=== PATIENT | female | born 1990 | race Caucasian/White ===

== ENCOUNTER 2016-12-26 16:37 | Emergency (ER) | payer MEDICAID ==
[~2016-12-26] VITALS: Ht 157.5 cm; Wt 140.0 kg
[~2016-12-26 16:37] MED LIST: AMOXICILLIN 50500 MG PO; AMOXICILLIN 8751 TAB PO; ANTIVERT 25MG25 MG PO; BACTRIM DS 8001 TAB PO; BCP TD; CENTRUM1 TAB PO; CIPRODEX OT; CLEOCIN HCL300 MG PO; DEPO MEDROL40 MG/ML IJ; DIFLUCAN150 MG PO; DOXYCYCLINE 10100 MG PO; ESCITALOPRAM PO; FIORICET 325 MG1 TA1 PO; GENTAMICIN EYE D5 ML OU; IMPLANON68 MG ID; LORTAB 5/500 501 TAB PO; LORTAB ELIX0.5 MG/ML PO; MACROBID 1100 MG/CAP PO; MAKENA250 MG/ML IM; MOTRIN 600600 MG/TAB PO; NO HOME MEDICATIONS; NORCO 325 MG-51 TAB PO; PERCOCET 325 MG1 TA2 PO; PHENERGAN 25 TA25 MG PO; PHENERGAN W/CO120 M1 PO; PHENERGAN W/CO120 ML PO; PRENATAL1 TA1 PO; PRENATAL1 TA7 PO; TOPAMAX 25MG25 M1 PO; TUSS PO; TYLENOL 325MG325 MG PO; TYLENOL 500MG500 MG PO; TYLENOL325 MG PO; ZITHROMAX 250M250 MG PO
[2016-12-26 16:39] VITALS: TEMP 97.8
[2016-12-26] MEDS ORDERED: DIFLUCAN150 MG PO (17:32)
[2016-12-26] MEDS ORDERED: NYSTATIN CREAM15 GM TP (17:43)
[2016-12-26 18:30] VITALS: BP 118/79; PULSE 67
== END 2016-12-26 18:34 | disposition home or self-care (01) ==
LOC: COL.ER 16:37
DX: G43.909 Migraine, unspecified, not intractable, without status migrainosus (principal); B37.2 Candidiasis of skin and nail
CPT/HCPCS: J1200; J1885; J2550; J7030

== ENCOUNTER 2018-11-07 19:28 | Emergency (ER) | payer MEDICAID ==
[~2018-11-07] VITALS: Ht 157.5 cm; Wt 157.3 kg
[~2018-11-07 19:28] MED LIST changes: +NYSTATIN CREAM15 GM TP
[2018-11-07 19:38] VITALS: BP 139/97; TEMP 100
[2018-11-07] MEDS ORDERED: AMOXICILLIN 50500 MG PO (20:00)
[2018-11-07 20:19] VITALS: PULSE 105
== END 2018-11-07 20:19 | disposition home or self-care (01) ==
LOC: COL.ER 19:28
DX: J03.90 Acute tonsillitis, unspecified (principal)

== ENCOUNTER → 2019-02-16 | Outpatient (CLI) | payer MEDICAID | LOC: MC.RAD 12:18 | DX: N63.14 Unspecified lump in the right breast, lower inner quadrant (principal) ==

== ENCOUNTER 2019-04-01 05:36 | Emergency (ER) | payer MEDICAID ==
[~2019-04-01] VITALS: Ht 157.5 cm; Wt 159.1 kg
[2019-04-01 05:40] VITALS: BP 132/87; TEMP 97.2
[2019-04-01] MEDS ORDERED: SUDAFED30 MG PO (06:03)
[2019-04-01] MEDS ORDERED: AMOXICILLIN 50500 MG PO (06:03)
[2019-04-01] MEDS ORDERED: ANTIVERT 25MG25 MG PO (06:05)
[2019-04-01 06:21] VITALS: PULSE 91
== END 2019-04-01 06:21 | disposition home or self-care (01) ==
LOC: COL.ER 05:36
DX: H66.92 Otitis media, unspecified, left ear (principal); R42 Dizziness and giddiness; F17.210 Nicotine dependence, cigarettes, uncomplicated; G43.909 Migraine, unspecified, not intractable, without status migrainosus

== ENCOUNTER 2019-07-06 16:35 | Emergency (ER) | payer MEDICAID ==
[~2019-07-06] VITALS: Ht 157.5 cm; Wt 165.5 kg
[~2019-07-06 16:35] MED LIST changes: +SUDAFED30 MG PO
[2019-07-06 16:40] VITALS: TEMP 98.3
[2019-07-06] MEDS ORDERED: IMITREX 25MG TA25 MG PO (16:46)
[2019-07-06 17:23] LABS: COLLECTION METHOD CLEAN CATCH
[2019-07-06 17:38] LABS: BASO % 0.2 % (0.0-2.0); EOS # 0.1 (0.0-0.7); EOS % 1.2 % (0-4.0); GRAN # 7.4 (1.4-6.5); GRAN % 72.7 % (42.2-75.2); HEMATOCRIT 38.7 % (37.0-47.0); HEMOGLOBIN 12.5 g/dl (12.5-16.0); LYMPH # 2.1 (1.2-3.4); LYMPH % 20.8 % (20.0-51.0); MEAN CELL VOLUME 92 fl (80.0-100.0); MEAN CORPUSCULAR HEMOGLOBIN 30 pg (27.0-31.0); MEAN CORPUSCULAR HGB CONC 32 g/dl (33.0-37.0); MEAN PLATELET VOLUME 11.7 fl (7.4-10.4); MONO # 0.5 (0.1-0.6); MONO % 4.7 % (1.7-9.3); PLATELET COUNT 190 K/mm3 (130-400); RED BLOOD COUNT 4.21 M/mm3 (4.10-5.30); REDCELL DISTRIBUTION WIDTH-CV 13.2 % (11.5-14.5)
[2019-07-06 17:40] LABS: MUCOUS Present /lpf; PH 5 (5-8); URINE APPEARANCE Cloudy; URINE BACTERIA Rare /hpf; URINE BILIRUBIN Negative (NEGATIVE); URINE BLOOD 1+ (NEGATIVE); URINE COLOR Yellow; URINE GLUCOSE Negative (NEGATIVE); URINE KETONE 1+ (NEGATIVE); URINE LEUKOCYTE ESTERASE 3+ (NEGATIVE); URINE NITRATE Negative (NEGATIVE); URINE PROTEIN(semi-quant) Negative (NEGATIVE); URINE UROBILINOGEN Negative (NEGATIVE)
[2019-07-06 17:53] LABS: ALBUMIN 4.2 gm/dL (3.5-5.0); BILIRUBIN,TOTAL 0.4 mg/dL (0.0-1.0); CALCIUM 9.5 mg/dL (8.4-10.2); CREATININE, serum 0.62 (0.52-1.25); POTASSIUM 3.9 mmol/L (3.4-5.0); TOTAL PROTEIN 7.8 gm/dL (6.4-8.2)
[2019-07-06] MEDS ORDERED: ZOFRAN ODT4 MG PO (20:05)
[2019-07-06 20:21] VITALS: BP 141/81; PULSE 85
== END 2019-07-06 20:20 | disposition home or self-care (01) ==
LOC: COL.ER 16:35
PROVIDERS: Emergency Medicine
DX: O21.1 Hyperemesis gravidarum with metabolic disturbance (principal); O99.351 Diseases of the nervous system complicating pregnancy, first trimester; Z3A.12 12 weeks gestation of pregnancy; G43.909 Migraine, unspecified, not intractable, without status migrainosus; Z87.891 Personal history of nicotine dependence
CPT/HCPCS: J2765; J7030

== ENCOUNTER 2019-12-09 12:59 | Outpatient (CLI) | payer MEDICAID ==
[~2019-12-09] VITALS: Ht 162.6 cm; Wt 178.2 kg
[~2019-12-09 12:59] MED LIST changes: +IMITREX 25MG TA25 MG PO; +ZOFRAN ODT4 MG PO
--- NOTE | 2019-12-09 13:05 | NUR ---
pt here for decreased movement. 34 weeks gestation, G3L2. Pt denies any contractions, leaking of fluid or bleeding. This nurse attempted to find FHR with EFM, unsuccessful. While trying to find FHR mother states baby starting kicking several times and she could feel it. This nurse at bedside could hear it on the US. 1320:Marta RN at bedside attempting to find FHR. Doppler used and 156bpm noted but unable to find with EFM. Dr Bright called, see physician notification. Assessment complete. complicated with obesity and fetus having trisomy 13. Plan of care to get bedside US for BPP. Will notify Dr Bright with results.
[2019-12-09 13:50] VITALS: BP 132/83; PULSE 117; TEMP 98.4
--- NOTE | 2019-12-09 13:52 | NUR ---
1330 UNABLE TO FIND FHT WITH EFM DUE TO PATIENTS SIZE. MOVEMENT AUDIBLE. DOPPLER FHT 156. BABY ACTIVE. DR LARSEN CALLED AND UPDATED. ORDERS TO CALL US FOR A BPP. NO MONITOR STRIP NEEDED WILL DO COMPLETE BPP PER DR LARSEN.
--- NOTE | 2019-12-09 15:56 | NUR ---
1430 AONO TECH AT BEDSIDE FOR ULTRSOUND/BPP. WILL CALL DOCTOR WITH RESULTS
[2019-12-09 16:02] VITALS: BP 143/82; PULSE 91
--- NOTE | 2019-12-09 16:05 | NUR ---
DOPPLER 144. PATIENT STATES SHE FEELS BABY MOVE NOW. WAITING FOR RESULTS OF BPP
--- NOTE | 2019-12-09 16:48 | NUR ---
6397 PATIENT STATES IS FEELING BABY MOVE ALOT SINCE BEEN HERE. DR LARSEN CALLED AND UPDATED, DR CANAS TO GET BPP REPORT.
--- NOTE | 2019-12-09 17:05 | NUR ---
Dr Bright called and spoke to Marta RODRIGUEZ and BPP results from Dr Archer given to Dr Bright. Ok to send home at this time, unable to get a BPP result d/t pt's size but report was showing a good FHR, adequate movement and ADRI. Discharge instructions given to pt and . Pt aware of kick counts and verbalizes understanding. No further questions.
== END 2019-12-09 17:05 | disposition home or self-care (01) ==
LOC: LDRO 12:59
DX: O36.8130 Decreased fetal movements, third trimester, not applicable or unspecified (principal); Z3A.34 34 weeks gestation of pregnancy

== ENCOUNTER 2019-12-20 12:07 | Outpatient (CLI) | payer MEDICAID ==
[~2019-12-20] VITALS: Ht 157.5 cm; Wt 178.2 kg
[2019-12-20 12:30] VITALS: BP 128/63; PULSE 89; TEMP 97.2
[2019-12-20 12:38] VITALS: BP 128/63; PULSE 89; TEMP 97.2
[2019-12-20 13:00] VITALS: BP 118/55; PULSE 86
--- NOTE | 2019-12-20 13:11 | NUR ---
1230 PATIENT HERE FOR COMPLAINTS OF NOT FEELING BABY MOVE AND SEVERE HEADACHE THAT WONT GO AWAY. ASSESSMENT COMPLETED. NO CONTRACTIONS FELT BY PATIENT. EFM ON UNABLE TO FIND FHT DUE TO PATIENT SIZES. DOPPLER FHT 148 IN RIGHT UPPER QUAD. EFM US PLACED IN THIS SPOT AND FHT 130'S BABY ACTIVE. US CALLED FOR BPP ALSO
--- NOTE | 2019-12-20 13:16 | NUR ---
1300 COMPLAINS OF HEADACHE GETTING WORSE. DR LARSEN CALLED AND UPDATED. ORDERS GIVEN FOR IVF AT THIS TIME.
[2019-12-20 14:11] VITALS: BP 127/61; PULSE 77; TEMP 98.3
--- NOTE | 2019-12-20 14:13 | NUR ---
1400 US DONE. UNABLE TO FIND FHT WITH EFM US DUE TO PATIENT SIZE. DOPPLER FOR FHT 138. IVF LR 1000 BOLUS AND ZOFRAN 8 MG IV PER .
[2019-12-20 15:00] VITALS: BP 120/71; PULSE 81
--- NOTE | 2019-12-20 15:14 | NUR ---
1500 EFM ON FHT 120 BABY VERY ACTIVE AT THIS TIME. IVF DONE, TYLENOL 100 MG PO GIVEN FOR SEVERE HEADACHE. NO NAUSEA NOTED AT THIS TIME. HEADACHE A LITTLE BETTER. DR LARSEN CALLED AND UPDATED. ORDERS TO DISMISS TO HOME TO FOLLOW UP WITH DR JENNINGS NEXT WEEK AT REGULAR APPOINTMENT. PATIENT DENIES NEEDS AT THIS TIME. IV DC'D AT THIS TIME. ALL DISCHARGE INSTRUCTIONS GIVEN TO PATIENT WITH VERBAL UNDERSTANDING NOTED.
[2019-12-30] MEDS ORDERED: PEPCID AC 10MG10 MG PO (19:59)
[2019-12-30] MEDS ORDERED: PRENATAL MVI (19:59)
[2019-12-30] MEDS ORDERED: ANTIVERT 12.512.5 MG PO (19:59)
== END 2019-12-20 15:10 | disposition home or self-care (01) ==
LOC: LDRO 12:07 → COL.ER 12:07 → EDSTATUS 12:18 → LDRO 15:10
DX: O36.8130 Decreased fetal movements, third trimester, not applicable or unspecified (principal); P01.3 Newborn affected by polyhydramnios; Z3A.35 35 weeks gestation of pregnancy
CPT/HCPCS: J2405; J7120

== ENCOUNTER 2020-03-12 23:13 | Observation (INO) | payer MEDICAID ==
[~2020-03-12] VITALS: Ht 157.5 cm; Wt 180.4 kg
[~2020-03-12 23:13] MED LIST changes: +ANTIVERT 12.512.5 MG PO; +IBU600 MG PO; +PEPCID AC 10MG10 MG PO; +PRENATAL MVI
[2020-03-13 00:26] LABS: COLLECTION METHOD CLEAN CATCH
[2020-03-13 00:29] LABS: BASO % 0.2 % (0.0-2.0); EOS # 0.1 (0.0-0.7); EOS % 1.2 % (0-4.0); GRAN # 9.1 (1.4-6.5); GRAN % 74.3 % (42.2-75.2); HEMOGLOBIN 10.9 g/dl (12.5-16.0); LYMPH # 2.2 (1.2-3.4); LYMPH % 18.1 % (20.0-51.0); MEAN CELL VOLUME 87 fl (80.0-100.0); MEAN CORPUSCULAR HEMOGLOBIN 27 pg (27.0-31.0); MEAN CORPUSCULAR HGB CONC 32 g/dl (33.0-37.0); MEAN PLATELET VOLUME 11.4 fl (7.4-10.4); MONO # 0.7 (0.1-0.6); MONO % 5.9 % (1.7-9.3); PLATELET COUNT 225 K/mm3 (130-400); REDCELL DISTRIBUTION WIDTH-CV 14.4 % (11.5-14.5)
[2020-03-13 00:34] LABS: HEMATOCRIT 34.6 % (37.0-47.0)
[2020-03-13 00:36] LABS: MUCOUS Present /lpf; PH 5 (5-8); URINE APPEARANCE Cloudy; URINE BACTERIA Rare /hpf; URINE BILIRUBIN Negative (NEGATIVE); URINE BLOOD 1+ (NEGATIVE); URINE COLOR Yellow; URINE GLUCOSE Negative (NEGATIVE); URINE KETONE Negative (NEGATIVE); URINE LEUKOCYTE ESTERASE 1+ (NEGATIVE); URINE NITRATE Negative (NEGATIVE); URINE PROTEIN(semi-quant) Negative (NEGATIVE); URINE UROBILINOGEN Negative (NEGATIVE)
[2020-03-13 00:48] LABS: BILIRUBIN,TOTAL 0.4 mg/dL (0.0-1.0); C-REACTIVE PROTEIN 2.4 mg/dL (0.0-0.9); CALCIUM 9.5 mg/dL (8.4-10.2); CREATININE, serum 0.76 (0.52-1.25); TOTAL PROTEIN 7.6 gm/dL (6.4-8.2)
--- NOTE | 2020-03-13 09:00 | NUR ---
Dr Keys here to see patient.
--- NOTE | 2020-03-13 10:43 | NUR ---
Patient alert and oriented, answers questions appropriately. See assessment. Abdomen soft, obese. Bowel sounds hyperactive x4 quads. +Flatus. No pain with palpation. Requests to increase diet. No other c/o at this time.
--- NOTE | 2020-03-13 11:33 | NUR ---
ELIZABETH met with the patient to discuss discharge plan. The patient lives in [place] with her fiance, Anoop Bhandari (ph#[phone]), and her three children. She reports independence with ADLs and does not have any DME. The patient's PCP is Dr. Akhil Webb and she receives her medications at [facility]. She reports no difficulties obtaining his meds. The patient does not have advanced directives, but she was interested in obtaining a form for DPOA-HC. ELIZABETH provided. The patient plans to return home with her family upon discharge. No additional needs at this time.
[2020-03-13 12:25] VITALS: BP 95/51; PULSE 80; TEMP 97.9
--- NOTE | 2020-03-13 12:29 | NUR ---
First visit from the ornamental rail installer. No needs right now.
[2020-03-13 12:43] VITALS: BP 102/64
[2020-03-13 17:00] VITALS: BP 110/59; PULSE 78; TEMP 97.7
--- NOTE | 2020-03-13 17:01 | NUR ---
Dr Keys here to see patient.
--- NOTE | 2020-03-13 19:40 | NUR ---
Patient taken by wheel chair to ER doors. Discharge paperwork discussed no questions at this time. Patient escorted down by this nurse, left by private vehicle.
== END 2020-03-13 19:40 | disposition home or self-care (01) ==
LOC: COL.ER 23:13 → SURG 03-13 03:24
PROVIDERS: Emergency Medicine; ADMIT Surgery
DX: K35.80 Unspecified acute appendicitis (principal); Z87.891 Personal history of nicotine dependence
CPT/HCPCS: G0378; J0696; J1885; J2270; J2405; J7030

== ENCOUNTER 2020-11-03 00:30 | Outpatient (CLI) | payer MEDICAID ==
[~2020-11-03] VITALS: Ht 157.5 cm; Wt 194.1 kg
--- NOTE | 2020-11-03 00:30 | NUR ---
To unit for labor assessment, accompanied by significant other. Oriented to room, monitor, plan of care. Questions invited and answred. Pt reports "I have a back ache. I may have done too much yesterday" ADAIR as noted. Working on obtaining FHT's.
== END 2020-11-03 01:55 | disposition home or self-care (01) ==
LOC: LDRO 00:30 → LDR 01:26 → LDRO 01:55
DX: O26.893 Other specified pregnancy related conditions, third trimester (principal); M54.9 Dorsalgia, unspecified; Z3A.33 33 weeks gestation of pregnancy
CPT/HCPCS: OP

== ENCOUNTER 2020-11-17 09:17 | Outpatient (CLI) | payer MEDICAID ==
[~2020-11-17] VITALS: Ht 154.9 cm; Wt 196.4 kg
[2020-11-17 09:30] VITALS: BP 136/82; PULSE 114; TEMP 98.1
--- NOTE | 2020-11-17 09:57 | NUR ---
0930 PATIENT HERE FOR COMPLAINTS OF DECREASED MOVEMENT SINCE YESTERDAY. EFM ON FHR 135 BABY VERY ATIVE, AND PATIENT IS FEELING BABY MOVE NOW. NO CONTRACTIONS FELT BY PATIENT OR ON MONITOR. DR MAYER CALLED AND UPDATED AND ODERS TO GET 20 MIN REACTIVE STRIP AND THEN DISMISS TO HOME
[2020-11-17 10:10] VITALS: BP 124/84; PULSE 72
--- NOTE | 2020-11-17 10:16 | NUR ---
1010REACTIVE STRIP NOTED. DR MAYER REVIEWED MONITOR STRIP AND ORDERS TO DISMISS TO HOME. ALL DISCHARGE INSTRUCTIONS GIVEN TO PATIENT AND BOYFRIEND WITH VERBAL UNDERSTANDING NOTED.
== END 2020-11-17 10:10 | disposition home or self-care (01) ==
LOC: LDRO 09:17
DX: O36.8130 Decreased fetal movements, third trimester, not applicable or unspecified (principal); Z3A.35 35 weeks gestation of pregnancy

== ENCOUNTER 2020-11-24 04:09 | Outpatient (CLI) | payer MEDICAID ==
[~2020-11-24] VITALS: Ht 157.5 cm; Wt 196.4 kg
--- NOTE | 2020-11-24 04:20 | NUR ---
G4L3. 36.2. Wheeled to LDR 6. Clean gown on. EFM and TOCO explained and applied. Pt states she was going to the bathroom when she thought her water broke but she is unsure. Pt states she feels like she is leaking but is also unsure if that is the case. Denies contractions or vaginal bleeding. Reports good movement. Plan of care explained. 0435: SVE FT/Thick/High by Tri RODRIGUEZ. Amniotest negative at this times as well. Exam moist. ROM + completed at this time as well by Tri RODRIGUEZ. Plan of care explained to pt and pt verbalizes her understanding. Call light within reach.
[2020-11-24] MEDS ORDERED: NATURAL MAGNES200 MG PO (04:47)
[2020-11-24] MEDS ORDERED: ANTIVERT 12.512.5 MG PO (04:48)
[2020-11-24] MEDS ORDERED: PRENATAL MVI PO (04:48)
[2020-11-24] MEDS ORDERED: CALCIUM CARBON650 M2 PO (04:48)
[2020-11-24 05:00] VITALS: BP 142/82; PULSE 96; TEMP 98
[2020-11-24 05:44] VITALS: BP 148/83; PULSE 100
== END 2020-11-24 05:55 | disposition home or self-care (01) ==
LOC: LDRO 04:09 → LDR 04:43 → LDRO 05:55
DX: O26.893 Other specified pregnancy related conditions, third trimester (principal); Z3A.36 36 weeks gestation of pregnancy
CPT/HCPCS: OP

== ENCOUNTER 2020-11-29 22:10 | Outpatient (CLI) | payer MEDICAID ==
[~2020-11-29] VITALS: Ht 157.5 cm; Wt 196.4 kg
[~2020-11-29 22:10] MED LIST changes: +CALCIUM CARBON650 M2 PO; +NATURAL MAGNES200 MG PO; +PRENATAL MVI PO
--- NOTE | 2020-11-29 22:20 | NUR ---
2220- PT PRESENTS TO LDR COMPLAINING OF CONTRACTIONS. PT WAS SUPPOSED TO COME IN FOR NST EARLIER IN THE DAY BUT FELT HER BABY MOVE AND STAYED HOME INSTEAD. PT STATES SHE HAS SINCE STARTED JEFFY AND HAS COME A LABOR CHECK. SHE DENIES LEAKING FLUID OR VAGINAL BLEEDING. STATES BABY HAS DECREASED MOVEMENT AGAIN THIS EVENING. PLAN FOR LABOR CHECK DISCUSSED AND QUESTIONS ANSWERED. 4- EFM X2 APPLIED. DIFFICULT TO TRACE FHT'S DUE TO MATERNAL BODY HABITUS. 2240- SVE BY THIS NURSE . PLAN OF CARE DISCUSSED WITH PT. MONITORS ADJUSTED. MOVEMENT NOTED. 2250- NURSING ADMISSION HISTORY AND ASSESSMENTS COMPLETE. PT REPORTS THAT SHE HAS HAD A CONTRACTION, BUT MONITOR DID NOT PICK IT UP AND NURSE DID NOT PALPATE ONE WHILE ATTEMPTING TO TRACE FHT'S. ORAL HYDRATION PROVIDED. 2311- PT REPORTS ANOTHER CONTRACTION. NURSE UNABLE TO PALPATE. 2320- PT WISHES TO SIT UP MORE FOR HER COMFORT. NURSE UNABLE TO FIND FHT'S IN THIS POSITION. WILL ADJUST AFTER PT'S SVE. MOVEMENT NOTED. 2340- SVE BY THIS NURSE UNCHANGED. PLAN OF CARE DISCUSSED. NURSE AT BEDSIDE AND HOLDS MONITOR IN PLACE TO OBTAIN CONSISTEN FHT TRACING PRIOR TO DISMISSAL. MOVEMENT NOTED. 0000- PT OFF MONITOR FOR DISMISSAL. 0004- DR JENNINGS CALLED AND UPDATED ON PT HISTORY, COMPLAINT, SVE, STRIP INTERPRETATION, DISCOMFORT, AND MOVEMENT. ORDERS RECEIVED TO DISMISS TO HOME STABLE LABOR CHECK. 0020- DISMISSAL INSTRUCTIONS GIVEN AND PT VERBALIZES UNDERSTANDING. PT DISMISSED TO HOME AMBULATORY ACCOMPANIED BY BOYFRIEND.
[2020-11-29 23:00] VITALS: BP 141/88; PULSE 103; TEMP 98.5
[2020-11-29 23:30] VITALS: BP 138/88; PULSE 106
== END 2020-11-30 00:20 | disposition home or self-care (01) ==
LOC: LDRO 22:10 → LDR 22:52 → LDRO 11-30 00:20
DX: O62.9 Abnormality of forces of labor, unspecified (principal); Z3A.37 37 weeks gestation of pregnancy
CPT/HCPCS: OP

== ENCOUNTER → 2020-12-08 | Outpatient (CLI) | payer MEDICAID ==
[~2020-12-08] VITALS: Ht 157.5 cm; Wt 201.4 kg
[~2020-12-08] MED LIST changes: +FERRO-TIME325 MG PO; +LOVENOX 4040 MG/0.4 SQ
--- NOTE | 2020-12-08 09:58 | NUR ---
PT HERE FOR LABOR CHECK. STARTED HAVING CONTRACTIONS OFF AND ON SINCE 12/06. INCERTAIN HOW OFTEN SHE IS HAVING THE CONTRACTIONS. SVE BY JENN 4/5O/HIGH. ASSESSMENT COMPLETED. FHT'S VERY DIIFICULT TO MONITOR. PT BREATHING THROUGH CONTRACTIONS-NOT PICKING THEM UP VIA TOCO. GAVE PT BUTTON TO PUSH TO INDICATE CONTRACTIONS.
[2020-12-08 10:12] VITALS: BP 108/57; PULSE 105; TEMP 97.8
--- NOTE | 2020-12-08 10:14 | NUR ---
UNABLE TO MONITOR DURATION OF CONTRACTIONS. PT PUSHING BUTTON WHEN SHE HAS THEM TO JENNA ON MONITOR. FHT'S WITH MODERATE VARIABILITY AND ACCELS.
[2020-12-08 11:10] VITALS: BP 112/63; PULSE 106
--- NOTE | 2020-12-08 11:30 | NUR ---
SVE BY Rin GRAHAM RN, WITH NO CERVICAL CHANGE. DISCUSSED EARLY LABOR WITH PT AND SIGNIFICANT OTHER.
== END | disposition still patient (30) ==
LOC: LDRO 11-29 16:17
DX: O62.9 Abnormality of forces of labor, unspecified (principal); Z3A.38 38 weeks gestation of pregnancy

== ENCOUNTER 2020-12-10 06:39 | Inpatient (IN) | payer MEDICAID ==
[2020-12-10] VITALS (26 sets, daily range): BP systolic 115–164; BP diastolic 66–108; PULSE 83–112; TEMP 97.6–98.4
[~2020-12-10] VITALS: Ht 157.6 cm; Wt 202.7 kg
[~2020-12-10 06:39] MED LIST changes: -FERRO-TIME325 MG PO; -LOVENOX 4040 MG/0.4 SQ
--- NOTE | 2020-12-10 07:00 | NUR ---
Patient ambulatory to LR4 with significant other, changes into gown, FHR/TOCO monitors placed and explained. Patient states she has been having contractions but nothing regular, denies leaking of fluid, vaginal bleeding, and decreased movement. Plan of care discussed. Difficulty tracing FHR and this RN adjusting monitor. IV started in right hand per Marta RN, blood obtained and to lab, LR infusing. Consents discussed and signed, packet given, assessment completed.
--- NOTE | 2020-12-10 07:45 | NUR ---
Dr. Holley called and states he has surgery and will be over to assess patient after. Start pitocin. 0753: Pitocin induction discussed and patient agrees with plan of care. Pitocin started at 2mu/hr. 0845: Patient off monitor to void. 0900: Difficulty tracing FHR at this time, RN adjusting monitor.
[2020-12-10 08:28] LABS: BASO % 0.2 % (0.0-2.0); EOS # 0.1 (0.0-0.7); EOS % 0.7 % (0-4.0); GRAN # 8.6 (1.4-6.5); GRAN % 69.2 % (42.2-75.2); HEMOGLOBIN 11.3 g/dl (12.5-16.0); LYMPH # 2.5 (1.2-3.4); LYMPH % 19.8 % (20.0-51.0); MEAN CELL VOLUME 91 fl (80.0-100.0); MEAN CORPUSCULAR HEMOGLOBIN 29 pg (27.0-31.0); MEAN CORPUSCULAR HGB CONC 32 g/dl (33.0-37.0); MEAN PLATELET VOLUME 12.4 fl (7.4-10.4); MONO # 1.1 (0.1-0.6); MONO % 8.7 % (1.7-9.3); PLATELET COUNT 225 K/mm3 (130-400); RED BLOOD COUNT 3.88 M/mm3 (4.10-5.30); REDCELL DISTRIBUTION WIDTH-CV 16.1 % (11.5-14.5)
[2020-12-10 08:30] LABS: ALBUMIN 3.5 gm/dL (3.5-5.0); BILIRUBIN,TOTAL 0.3 mg/dL (0.0-1.0); CALCIUM 9.8 mg/dL (8.4-10.2); CREATININE, serum 0.78 (0.52-1.25); HEMATOCRIT 35.1 % (37.0-47.0); POTASSIUM 4.2 mmol/L (3.4-5.0); TOTAL PROTEIN 7.2 gm/dL (6.4-8.2)
[2020-12-10 09:06] LABS: COLLECTION METHOD CLEAN CATCH
--- NOTE | 2020-12-10 09:15 | NUR ---
Dr. Holley at bedside and assessing patient and FHR strip. 0915: Bedside SONO done and vertex position confirmed. 0920: SVE per physician /-3 and AROM at this time with clear fluid noted. 0923: Physician attempting to apply FSE and physician states he feels cord prolapse and continues to apply pressure to head. Pitocin stopped. LR bolus begun. Patient notified on need for emergent and general anethesia. Dr. Holley continues to hold pressure on head. 0924: Hodan NAVARRETE called for emergent and on the way. Patient prepped for . 0925: palpitates cord and 130bpm of heart rate noted. 0927: FHR noted per doppler-130bpm. 0932: Kruse catheter placed per Marta RODRIGUEZ. 0933: FHR doppler-130bpm. 0935: Patient off monitor and to OR.
[2020-12-10 09:44] LABS: MUCOUS Present /lpf; PH 5 (5-8); SQUAMOUS EPITHELIAL 20-50 /hpf; URINE APPEARANCE Cloudy; URINE BACTERIA Rare /hpf; URINE BILIRUBIN Negative (NEGATIVE); URINE BLOOD 2+ (NEGATIVE); URINE COLOR Yellow; URINE GLUCOSE Negative (NEGATIVE); URINE KETONE Negative (NEGATIVE); URINE LEUKOCYTE ESTERASE 2+ (NEGATIVE); URINE NITRATE Negative (NEGATIVE); URINE PROTEIN(semi-quant) 2+ (NEGATIVE); URINE UROBILINOGEN Negative (NEGATIVE); URINE WBC >50 /hpf
[2020-12-11 05:00] VITALS: BP 127/70; PULSE 105; TEMP 98.6
[2020-12-11 06:47] LABS: HEMATOCRIT 26.5 % (37.0-47.0); HEMOGLOBIN 8.2 g/dl (12.5-16.0)
[2020-12-11 07:00] VITALS: BP 121/73; PULSE 115; TEMP 97.7
[2020-12-11 17:00] VITALS: BP 127/69; PULSE 120; TEMP 97.9
[2020-12-11 17:45] VITALS: PULSE 112
[2020-12-11 20:03] VITALS: BP 134/71; PULSE 104; TEMP 98.2
[2020-12-12 08:55] VITALS: BP 137/76; PULSE 110; TEMP 98.3
[2020-12-12] MEDS ORDERED: IBU600 MG PO (09:06)
[2020-12-12] MEDS ORDERED: LOVENOX 4040 MG/0.4 SQ (09:06)
[2020-12-12] MEDS ORDERED: FERRO-TIME325 MG PO (09:06)
[2020-12-12] MEDS ORDERED: PERCOCET 325 MG1 TA2 PO (09:06)
[2020-12-12 13:20] VITALS: BP 129/72; PULSE 104; TEMP 98
== END 2020-12-12 15:00 | disposition home or self-care (01) | DRG 787 ==
LOC: LDR 06:39 → OB 13:27
PROVIDERS: ADMIT Obstetrics & Gynecology
PROC: 10D00Z1 Extraction of Products of Conception, Low, Open Approach (ICD-10-PCS; principal; 2020-12-10)
DX: O69.0XX0 Labor and delivery complicated by prolapse of cord, not applicable or unspecified (principal); O99.354 Diseases of the nervous system complicating childbirth; D62 Acute posthemorrhagic anemia; O90.81 Anemia of the puerperium; G43.909 Migraine, unspecified, not intractable, without status migrainosus; O13.4 Gestational [pregnancy-induced] hypertension without significant proteinuria, complicating childbirth; O99.214 Obesity complicating childbirth; E66.01 Morbid (severe) obesity due to excess calories; O99.824 Streptococcus B carrier state complicating childbirth; O99.344 Other mental disorders complicating childbirth; F41.9 Anxiety disorder, unspecified; F31.9 Bipolar disorder, unspecified; Z3A.38 38 weeks gestation of pregnancy; Z37.0 Single live birth; Z20.822 Contact with and (suspected) exposure to COVID-19
CPT/HCPCS: J0330; J0690; J1650; J1885; J2270; J2405; J2540; J2590; J2704; J2710; J3010; J7120

== ENCOUNTER 2020-12-31 16:47 | Emergency (ER) | payer MEDICAID ==
[~2020-12-31] VITALS: Ht 157.5 cm; Wt 187.7 kg
[~2020-12-31 16:47] MED LIST changes: +FERRO-TIME325 MG PO; +LOVENOX 4040 MG/0.4 SQ
[2020-12-31 16:54] VITALS: TEMP 98.9
[2020-12-31 17:28] LABS: BASO % 0.2 % (0.0-2.0); EOS # 0.2 (0.0-0.7); EOS % 1.4 % (0-4.0); GRAN # 8.2 (1.4-6.5); GRAN % 72.8 % (42.2-75.2); LYMPH # 2.2 (1.2-3.4); LYMPH % 19.6 % (20.0-51.0); MEAN CELL VOLUME 93 fl (80.0-100.0); MEAN CORPUSCULAR HGB CONC 29 g/dl (33.0-37.0); MEAN PLATELET VOLUME 10.6 fl (7.4-10.4); MONO # 0.6 (0.1-0.6); MONO % 5.3 % (1.7-9.3); PLATELET COUNT 396 K/mm3 (130-400); RED BLOOD COUNT 3.15 M/mm3 (4.10-5.30); REDCELL DISTRIBUTION WIDTH-CV 16.6 % (11.5-14.5)
[2020-12-31 17:30] LABS: HEMATOCRIT 29.3 % (37.0-47.0); HEMOGLOBIN 8.6 g/dl (12.5-16.0); MEAN CORPUSCULAR HEMOGLOBIN 27 pg (27.0-31.0)
[2020-12-31 17:39] LABS: CALCIUM 9.6 mg/dL (8.4-10.2); CREATININE, serum 1.14 (0.52-1.25); POTASSIUM 4.4 mmol/L (3.4-5.0)
[2020-12-31 20:15] VITALS: BP 131/76; PULSE 76
== END 2020-12-31 20:15 | disposition home or self-care (01) ==
LOC: COL.ER 16:47
PROVIDERS: Physician Assistant
DX: O90.89 Other complications of the puerperium, not elsewhere classified (principal); N93.8 Other specified abnormal uterine and vaginal bleeding; G43.909 Migraine, unspecified, not intractable, without status migrainosus; E66.01 Morbid (severe) obesity due to excess calories; Z68.45 Body mass index [BMI] 70 or greater, adult
CPT/HCPCS: J2210; J7030

== ENCOUNTER 2021-01-02 11:42 | Day surgery (SDC) | payer MEDICAID ==
[2021-01-02] VITALS (8 sets, daily range): BP systolic 117–148; BP diastolic 58–78; PULSE 73–98; TEMP 97.8–98
[~2021-01-02] VITALS: Ht 157.5 cm; Wt 189.1 kg
[2021-01-02 12:45] LABS: MEAN CELL VOLUME 95 fl (80.0-100.0); MEAN CORPUSCULAR HGB CONC 30 g/dl (33.0-37.0); MEAN PLATELET VOLUME 10.4 fl (7.4-10.4); PLATELET COUNT 299 K/mm3 (130-400); RED BLOOD COUNT 2.55 M/mm3 (4.10-5.30); REDCELL DISTRIBUTION WIDTH-CV 17.1 % (11.5-14.5)
[2021-01-02 12:50] LABS: HEMATOCRIT 24.2 % (37.0-47.0); HEMOGLOBIN 7.2 g/dl (12.5-16.0); MEAN CORPUSCULAR HEMOGLOBIN 28 pg (27.0-31.0)
--- NOTE | 2021-01-02 16:40 | NUR ---
Pt to unit from OR for D&C, awake and alert, VSS, requests something to eat. Denies pain or N/V.
[2021-01-02] MEDS ORDERED: IBU600 MG PO (17:55)
--- NOTE | 2021-01-02 18:08 | NUR ---
Pt tolerated cracker and sprite well, ordered a meal. Denies pain, nausea, or feeling light headed, bleeding WNL. Pt up to the bathroom, gait steady.
--- NOTE | 2021-01-02 19:10 | NUR ---
1909- NURSE CHIQUITA TO BEDSIDE AND REMOVES IV SITE AND SET OF VITAL SIGNS. PT HAS EATEN DINNER WITH NO NAUSEA AND VOMITING AND HAS BEEN ABLE TO VOID. 2029- NURSE VERIFIES THAT PT HAS A RIDE HOME AND PT VERBALIZES THAT HER BOYFRIEND IS WAITING IN THE PARKING LOT TO PICK HER UP. 2099- DISCHARGE INSTRUCTIONS GIVEN AND PT VERBALIZES UNDERSTANDING. 2104- PT DISMISSED TO HOME PER WHEELCHAIR, ACCOMPANIED BY TECH. BELONGINGS SENT WITH PT.
== END 2021-01-02 21:05 | disposition home or self-care (01) ==
LOC: SDCO 11:42 → OB 16:40 → SDCO 21:05
PROVIDERS: Obstetrics & Gynecology
DX: O72.2 Delayed and secondary postpartum hemorrhage (principal); D62 Acute posthemorrhagic anemia; E66.01 Morbid (severe) obesity due to excess calories; G43.909 Migraine, unspecified, not intractable, without status migrainosus; R42 Dizziness and giddiness; F41.9 Anxiety disorder, unspecified; F31.9 Bipolar disorder, unspecified; Z20.822 Contact with and (suspected) exposure to COVID-19; Z37.9 Outcome of delivery, unspecified; Z87.891 Personal history of nicotine dependence; Z68.45 Body mass index [BMI] 70 or greater, adult; Z79.899 Other long term (current) drug therapy; Z80.41 Family history of malignant neoplasm of ovary; Z82.49 Family history of ischemic heart disease and other diseases of the circulatory system
CPT/HCPCS: OP; J0690; J2704; J3010; J7120; P9016

== ENCOUNTER → 2022-04-29 | Outpatient (CLI) | payer MEDICAID | LOC: COL.RAD 10:36 | DX: H83.8X1 Other specified diseases of right inner ear (principal) | CPT/HCPCS: Q9967 ==